=== PATIENT | female | born 1945 | race Caucasian/White ===

== ENCOUNTER 2024-08-15 05:40 | Day surgery (SDC) | payer OTHER, SELFPAY ==
--- NOTE | 2024-08-10 08:00 | EKG_ITS ---
[facility] Test Date: 2024-08-10 Pat Name: RHODA OSBORN Department: Room: - Gender: Female [employer]: [employer] : 1945 Requested By: Jeff Almeida Order Number: [id number] Reading MD: Jeff Almeida Measurements Intervals [place] Rate: 60 P: 31 NM: 186 QRS: 40 QRSD: 91 T: 42 QT: 411 QTc: 412 Interpretive Statements SINUS RHYTHM LOW QRS VOLTAGE IN PRECORDIAL LEADS No previous ECG available for comparison /[id number]/[id number]
[2024-08-10 08:38] VITALS: BMI 23.3
[2024-08-10 09:41] LABS: Basophils # (Auto) 0.1 Thou/mm3 (0.0-0.2); Basophils % (Auto) 1 % (0-2.5); Eosinophils # (Auto) 0.3 Thou/mm3 (0.0-0.5); Eosinophils % (Auto) 3 % (0-10); Hematocrit 42.5 % (36.0-46.0); Hemoglobin 14.6 g/dL (12.0-16.0); Immature Granulocytes % (Auto) 0 % (0-0); Immature Granulocytes Auto 0.04 Thou/mm3 (0.00-0.00); Lymphocytes % (Auto) 33 % (10-50); Mean Corpuscular HGB Conc 34.4 g/dl (31.0-37.0); Mean Corpuscular Hemoglobin 33.2 pg (25.0-35.0); Mean Corpuscular Volume 97 fL (80-100); Monocytes # (Auto) 0.7 Thou/mm3 (0.0-0.8); Monocytes % (Auto) 8 % (0-12); Neutrophils % (Auto) 55 % (37-80); Nucleated Red Blood Cell % 0 /100 WBC (0); Platelet Count 237 Thou/mm3 (140-440); RDW Standard Deviation 44.9 fL (36.4-46.3); White Blood Count 9.1 Thou/mm3 (3.6-11.0)
[2024-08-10 09:51] LABS: Partial Thromboplastin Time 25.9 Seconds (22.0-36.0); Prothrombin Time 11.2 Seconds (9.0-12.2)
[2024-08-10 09:55] LABS: Alanine Aminotransferase 16 U/L (10-49); Albumin, Serum 4.4 gm/dL (3.4-4.8); Albumin/Globulin Ratio 1.8 (1.2-2.2); Alkaline Phosphatase 85 U/L (46-116); Anion Gap 9 (7-16); Aspartate Amino Transferase 21 U/L (0-34); BUN/Creatinine Ratio 15 Ratio (12-20); Bilirubin,Total 0.8 mg/dL (0.3-1.2); Blood Urea Nitrogen 12 mg/dL (9-23); Calcium 9.3 mg/dL (8.3-10.6); Calcium (Corrected) 9.3 mg/dL (8.5-10.1); Carbon Dioxide 26.2 mMol/L (20.0-31.0); Chloride 106 mMol/L (98-107); Creatinine (Component) 0.8 mg/dL (0.6-1.3); Estimated Creatinine Clearance 43.7 mL/min (>60); Globulin 2.4 gm/dL (2.3-3.5); Glucose 99 mg/dL (74-106); Osmolality,Calculated 280 (275-295); Sodium 141 mMol/L (136-145); Total Protein 6.8 gm/dL (5.7-8.2); eGFR > 60 See Note
--- NOTE | 2024-08-10 16:23 | ESHP_ITS ---
RE: RHODA OSBORN : 1945 DATE OF ADMISSION: 08/15/2024 CHIEF COMPLAINT: Triggering, right thumb. HISTORY OF PRESENT ILLNESS: The patient has developed triggering of her right thumb. She is scheduled for a right trigger thumb release. The risks of the procedure were explained to the patient. Signed informed consent was obtained in the office. PAST MEDICAL HISTORY: Reviewed. SOCIAL HISTORY: She is with two children. OPERATIONS: * Tonsillectomy. * Left trigger thumb release. ALLERGIES: NONE. MEDICATIONS: None. MAJOR MEDICAL ILLNESSES: Denies heart disease, heart attack, heart murmur, hypertension, gout, kidney disease, liver disease, hepatitis, polio, tuberculosis, arthritis, yellow jaundice, cholelithiasis, diabetes, valley fever, depression, ulcer or cancer. FAMILY HISTORY: Negative for TB, diabetes, asthma, glaucoma, heart disease, heart attack, liver disease, hypertension, emphysema, stroke, epilepsy, bleeding disorder, ulcer or cancer. REVIEW OF SYSTEMS: The patient has IBS. Denies chest pain, shortness of breath, orthopnea, paroxysmal nocturnal dyspnea, dyspnea on exertion, productive cough or hemoptysis. Denies nausea, vomiting, constipation, hematemesis, hematochezia, melena or black tarry bowel movements. Denies dysuria or prior hematuria. Denies stroke, seizures or syncopal episodes. No change in moles or rashes. No difficulty with balance. No numbness or tingling in hands. Mammogram 2022. Does not smoke. She has one glass of wine. PHYSICAL EXAMINATION: General: Shows a well-developed, well-nourished woman in no acute distress. HEENT: Normocephalic without masses. EOM is full. Throat is clear. Neck: Supple. Chest: Clear to P and A. Heart: Regular rate and rhythm. No murmurs. No gallops. Abdomen: Soft and nontender. No masses. No organomegaly. Breasts: Deferred. Rectal: Deferred. Genitalia: Deferred. Extremities: Examination of the extremities shows that she has triggering of the right thumb and pain over the metacarpophalangeal joint of the right thumb. No numbness or tingling in the fingers. ASSESSMENT: Right trigger thumb. PLAN: Release of right trigger thumb. DT: 15:31:52 TT: 16:21:00 Ref: [id number] - TID: [id number]
[2024-08-15 06:17] VITALS: BP 130/73; PULSE 66; RESP 16; TEMP 36.4; O2SAT 97; BMI 23.3
[2024-08-15] MEDS: RINGERS LACTATED 500 ML 500 ML 20 ML IV (06:23)
--- NOTE | 2024-08-15 07:32 | CHAP ---
Patient expressed gratitude for prayer before their procedure.
[2024-08-15 08:48] VITALS: BP 141/77; PULSE 71; RESP 20; TEMP 36.5; O2SAT 98
--- NOTE | 2024-08-15 08:48 | SUR.PHASEII ---
0848: Pt. AAOx4, vitals stable, breathing unlabored, no complaint of pain or nausea, dressing to right hand CDI, no active bleed noted, pt. able to wiggle bilateral fingers, cap refill to bilateral hands less than 3 seconds, report received from MD Caballero and Abad BORJAS .
[2024-08-15 08:53] VITALS: BP 139/77; PULSE 68; RESP 19; TEMP 36.2; O2SAT 98
[2024-08-15 08:58] VITALS: BP 134/86; PULSE 67; RESP 20; TEMP 36.2; O2SAT 98
[2024-08-15 09:03] VITALS: BP 140/71; PULSE 65; RESP 18; TEMP 36.2; O2SAT 97
[2024-08-15 09:18] VITALS: BP 126/73; PULSE 65; RESP 18; TEMP 36.3; O2SAT 95
--- NOTE | 2024-08-15 09:30 | SUR.PHASEII ---
Pt. AAOx4, vitals stable, breathing unlabored, no complaint of pain or nausea, dressing to right hand CDI, no active bleed noted, pt. able to wiggle bilateral fingers, cap refill to bilateral hands less than 3 seconds, gave discharge instructions to the pt. and her ride, both verbalized understanding and had no further questions. Pt. ambulated to wheelchair with steady gait and no assist, pt. left with all personal belongings.
--- NOTE | 2024-08-15 21:51 | PD.SUROPNT ---
Date of Procedure 08/15/24 Pre Op Diagnosis Right trigger thumb Post Op Diagnosis Right trigger thumb Procedure Release of right trigger thumb triggering of right thumb, cortisone injection done and recurrence of right trigger thumb Procedure Description Patient taken the operating room and the right thumb was identified as the correct digit. She received IV sedation and preoperative Ancef. Digital nerve block carried out with lidocaine. The right arm was elevated exsanguinated with an Esmarch bandage. Tourniquet was inflated. Transverse incision was made over the MCP joint. Gentle blunt dissection was carried out and the radial digital nerve was identified. The A1 gold was identified and incised the patient was then instructed to flex and extend her right thumb. She did it easily. There was no palpable triggering no visual triggering. Wound irrigated with Betadine and saline solution tourniquet was deflated minimal bleeding encountered. Wound closed with interrupted 5-0 nylon suture using a vertical mattress technique. Bulky dressing was applied using Dakin soaked Kerlix sponges dry Kerlix sponges 4 inch cut bias. Sponge needle counts correct taken to the recovery room uneventfully. Anesthesia MAC and regional Drains None Implants None Pathology / specimen None IVF Infused 250 Urine Output 0 Estimated Blood Loss 5 Condition Stable Disposition PACU Surgeon Jeff Hunter MD Surgical Staff Operation Date: 08/15/24 07:30 Case Staff Anesthesiologist: Kyle Caballero
== END 2024-08-15 09:30 | disposition home or self-care (01) ==
PROVIDERS: PCP Family Medicine; Referring Provider Orthopaedic Surgery; Visit Provider Orthopaedic Surgery
PROC: (CPT 26055; principal; 2024-08-15 07:30)
DX: M65.311 Trigger thumb, right thumb (principal); Z01.810 Encounter for preprocedural cardiovascular examination
CPT/HCPCS: 26055; 36415; 80053; 85025; 85610; 85730; 93005; A4649; J0690; J2250; J2704; J2795; J3010; J3490; J7120; A9270

== ENCOUNTER → 2024-08-18 | Outpatient (CLI) | payer OTHER, SELFPAY ==
--- NOTE | 2024-08-18 07:00 | XR_ITS ---
MRI shoulder, left, without contrast. Date and time: August 18, 2024 0655 hrs. Indications: Left shoulder pain radiating to the left arm weakness in the left arm beginning 1.5 years ago after lifting injury, patient heard a pop in the shoulder followed by shoulder pain Technique: Multiple axial, sagittal and coronal sections of the shoulder have been obtained. Siemens high-resolution 1.5 Molly MRI scanner is utilized. Axial fat-suppressed sections, TR 2350, TE 18 T2-weighted coronal fat-saturated images, TR 3500, TE 7100 T1-weighted coronal images, TR 500, TE 15 T2-weighted sagittal fat-saturated images, TR 3500, TE 57 T1-weighted sagittal sections, TR 504, TE 13. Findings: 20 mm full-thickness rotator cuff tear Subscapularis insertion is intact. Subscapularis bursa is small. Long head of the biceps is in the bicipital groove. No definite tear of the biceps superior labral anchor is seen. Retraction of the musculotendinous junction of the rotator cuff is evident. Tendinosis pattern is moderate. Distance between the acromium and humeral head is 3 mm Atrophy of the supraspinatus muscle is severe. Atrophy of the infraspinatus muscle is moderate. Sagittal sections demonstrate a horizontal acromion. Acromioclavicular joint demonstrates moderate osteoarthritis. Osacromiale is not identified. Anterior superior posterior labral tears. Bony glenoid fossa on the sagittal sections does not demonstrate osseous defect. Occult fracture or area of avascular necrosis is not seen. Acromioclavicular joint separation is not visible. Defect in the posterolateral margin of the humeral head is not seen Impression: 20 mm full-thickness rotator cuff tear Anterior superior posterior labral tears
== END | disposition home or self-care (01) ==
LOC: SMRI 06:38
PROVIDERS: PCP Orthopaedic Surgery; Referring Provider Orthopaedic Surgery; Visit Provider Orthopaedic Surgery
DX: M75.122 Complete rotator cuff tear or rupture of left shoulder, not specified as traumatic (principal); S43.432A Superior glenoid labrum lesion of left shoulder, initial encounter; X58.XXXA Exposure to other specified factors, initial encounter
CPT/HCPCS: 73221

== ENCOUNTER → 2024-09-21 | Outpatient (CLI) | payer OTHER, SELFPAY ==
[2024-09-21 12:02] LABS: Alanine Aminotransferase 11 U/L (10-49); Albumin, Serum 4.3 gm/dL (3.4-4.8); Alkaline Phosphatase 78 U/L (46-116); Anion Gap 10 (7-16); Aspartate Amino Transferase 19 U/L (0-34); BUN/Creatinine Ratio 16 Ratio (12-20); Bilirubin,Total 0.8 mg/dL (0.3-1.2); Blood Urea Nitrogen 11 mg/dL (9-23); Calcium 9.3 mg/dL (8.3-10.6); Calcium (Corrected) 9.3 mg/dL (8.5-10.1); Carbon Dioxide 27.6 mMol/L (20.0-31.0); Cardiac Risk Estimate 3.9 RATIO (3.7-5.6); Chloride 104 mMol/L (98-107); Cholesterol 193 mg/dL (132-200); Creatinine (Component) 0.7 mg/dL (0.6-1.3); Globulin 2.1 gm/dL (2.3-3.5); Glucose 98 mg/dL (74-106); HDL Cholesterol 50 mg/dL (40-60); LDL Cholesterol,Calculated 115 mg/dL (0-130); Osmolality,Calculated 282 (275-295); Potassium 4.6 mMol/L (3.4-5.1); Sodium 142 mMol/L (136-145); Total Protein 6.4 gm/dL (5.7-8.2); Triglycerides 142 mg/dL (30-150); eGFR > 60 See Note
== END | disposition home or self-care (01) ==
LOC: COPL 10:03
PROVIDERS: PCP Family Medicine; Referring Provider Physician Assistant; Visit Provider Physician Assistant
DX: E78.5 Hyperlipidemia, unspecified (principal)
CPT/HCPCS: 36415; 80053; 80061

== ENCOUNTER → 2025-05-18 | Outpatient (CLI) | payer OTHER, SELFPAY ==
[2025-05-18 11:15] LABS: Collection Type, Urine Clean Catch; Squamous Epithelial Cell,Urine 0 /hpf (0-5)
[2025-05-18 12:05] LABS: Bilirubin,Urine Negative (Negative); Blood,Urine Trace (Negative); Clarity,Urine Clear (Clear/Hazy); Color,Urine Yellow (Lt Yel-Yel); Culture Indicated,Urine Not Indicated; Glucose, Urine Negative (Negative); Ketones,Urine Negative (Negative); Leukocyte Esterase,Urine Negative (Negative); Nitrite,Urine Negative (Negative); PH,Urine 6.0 (5.0-7.0); Protein,Urine Negative (Neg - Trace); RBC,Urine 12 /hpf (0-3); Specific Gravity,Urine 1.024 (1.001-1.035); Urobilinogen,Urine Negative mg/dL (0.0-1.0); WBC,Urine < 1 /hpf (0-5)
[2025-05-18 12:07] LABS: Basophils # (Auto) 0.1 Thou/mm3 (0.0-0.2); Basophils % (Auto) 1 % (0-2.5); Eosinophils # (Auto) 0.1 Thou/mm3 (0.0-0.5); Eosinophils % (Auto) 1 % (0-10); Hematocrit 43.2 % (36.0-46.0); Hemoglobin 14.7 g/dL (12.0-16.0); Immature Granulocytes Auto 0.05 Thou/mm3 (0.00-0.00); Lymphocytes # (Auto) 3.2 Thou/mm3 (1.0-4.8); Lymphocytes % (Auto) 36 % (10-50); Mean Corpuscular HGB Conc 34.0 g/dl (31.0-37.0); Mean Corpuscular Hemoglobin 34.0 pg (25.0-35.0); Mean Corpuscular Volume 100 fL (80-100); Monocytes # (Auto) 0.6 Thou/mm3 (0.0-0.8); Monocytes % (Auto) 7 % (0-12); Neutrophils # (Auto) 4.9 Thou/mm3 (1.8-7.7); Neutrophils % (Auto) 55 % (37-80); Nucleated Red Blood Cell # 0.00 Thou/mm3 (0.00-0.00); Nucleated Red Blood Cell % 0 /100 WBC (0); Platelet Count 199 Thou/mm3 (140-440); RDW Standard Deviation 47.3 fL (36.4-46.3); Red Blood Count 4.32 Miln/mm3 (4.00-5.20); White Blood Count 8.9 Thou/mm3 (3.6-11.0)
[2025-05-18 12:30] LABS: Alanine Aminotransferase 21 U/L (10-49); Albumin, Serum 4.3 gm/dL (3.4-4.8); Albumin/Globulin Ratio 2.2 (1.2-2.2); Alkaline Phosphatase 80 U/L (46-116); Anion Gap 13 (7-16); Aspartate Amino Transferase 32 U/L (0-34); BUN/Creatinine Ratio 19 Ratio (12-20); Bilirubin,Total 0.9 mg/dL (0.3-1.2); Blood Urea Nitrogen 13 mg/dL (9-23); Calcium 9.9 mg/dL (8.3-10.6); Calcium (Corrected) 9.9 mg/dL (8.5-10.1); Carbon Dioxide 25.9 mMol/L (20.0-31.0); Cardiac Risk Estimate 3.2 RATIO (3.7-5.6); Chloride 107 mMol/L (98-107); Cholesterol 201 mg/dL (132-200); Creatinine (Component) 0.7 mg/dL (0.6-1.3); Globulin 2.0 gm/dL (2.3-3.5); Glucose 94 mg/dL (74-106); HDL Cholesterol 62 mg/dL (40-60); LDL Cholesterol,Calculated 115 mg/dL (0-130); Osmolality,Calculated 290 (275-295); Potassium 5.2 mMol/L (3.4-5.1); Sodium 146 mMol/L (136-145); Thyroid Stimulating Hormone 3.05 uIU/mL (0.55-4.78); Total Protein 6.3 gm/dL (5.7-8.2); Triglycerides 120 mg/dL (30-150); eGFR > 60 See Note
[2025-05-18 12:38] LABS: Vitamin B12 718 pg/mL (211-911); Vitamin D 25 Hydroxy Total 59.3 ng/mL (7.3-40.2)
== END | disposition home or self-care (01) ==
LOC: COPL 10:12
PROVIDERS: PCP Family Medicine; Referring Provider Physician Assistant; Visit Provider Physician Assistant
DX: Z00.00 Encounter for general adult medical examination without abnormal findings (principal); E78.5 Hyperlipidemia, unspecified; E55.9 Vitamin D deficiency, unspecified
CPT/HCPCS: 36415; 80053; 80061; 81001; 82306; 82607; 84443; 85025

== ENCOUNTER → 2025-06-01 | Outpatient (CLI) | payer OTHER, SELFPAY ==
[2025-06-05 09:20] LABS: Fecal Globin Result NOT DETECTED (NOT DETECTED)
== END | disposition home or self-care (01) ==
LOC: SLDO 12:40
PROVIDERS: PCP Family Medicine; Referring Provider Physician Assistant; Visit Provider Physician Assistant
DX: Z12.11 Encounter for screening for malignant neoplasm of colon (principal)
CPT/HCPCS: 82274; G0328

== ENCOUNTER → 2025-06-20 | Outpatient (CLI) | payer OTHER, SELFPAY ==
[2025-06-20 13:31] LABS: Alanine Aminotransferase 20 U/L (10-49); Albumin, Serum 4.3 gm/dL (3.4-4.8); Albumin/Globulin Ratio 2.0 (1.2-2.2); Alkaline Phosphatase 75 U/L (46-116); Anion Gap 10 (7-16); Aspartate Amino Transferase 28 U/L (0-34); BUN/Creatinine Ratio 21 Ratio (12-20); Bilirubin,Total 0.6 mg/dL (0.3-1.2); Blood Urea Nitrogen 15 mg/dL (9-23); Calcium 9.6 mg/dL (8.3-10.6); Calcium (Corrected) 9.6 mg/dL (8.5-10.1); Carbon Dioxide 27.2 mMol/L (20.0-31.0); Chloride 106 mMol/L (98-107); Creatinine (Component) 0.7 mg/dL (0.6-1.3); Globulin 2.2 gm/dL (2.3-3.5); Glucose 92 mg/dL (74-106); Osmolality,Calculated 285 (275-295); Potassium 4.3 mMol/L (3.4-5.1); Sodium 143 mMol/L (136-145); Total Protein 6.5 gm/dL (5.7-8.2); eGFR > 60 See Note
--- NOTE | 2025-06-20 14:00 | XR_ITS ---
Examination: Screening digital mammography, bilateral Computer aided detection 3-D breast Tomosynthesis, bilateral Date and time of exam: June 20, 2025, 1300 hours, compared to mammograms dating to September 15, 2017h Indication: Screening Technique: Nonmagnified MLO, CC views of the breasts to been obtained, reconstructed from 3-D Tomosynthesis images. R2 computer aided detection program utilized for evaluation of suspicious masses and/or abnormal calcifications. 3-D Tomosynthesis images obtained. Findings: Scattered areas of fibroglandular density. 25 mm more prominent focal asymmetry in the upper outer right breast mid to posterior depth Impression: BI-RADS Category 0: Incomplete: Need additional imaging evaluation Recommend follow-up spot tomographic views of 25 mm more prominent focal asymmetry upper outer right breast as well as bilateral breast sonography to complete the work-up
== END | disposition home or self-care (01) ==
LOC: CDIM 12:25
PROVIDERS: PCP Physician Assistant; Referring Provider Family Medicine; Visit Provider Family Medicine
DX: Z12.31 Encounter for screening mammogram for malignant neoplasm of breast (principal); R92.8 Other abnormal and inconclusive findings on diagnostic imaging of breast; N64.89 Other specified disorders of breast
CPT/HCPCS: 36415; 77063; 77067; 80053

== ENCOUNTER → 2025-07-31 | Outpatient (CLI) | payer OTHER, SELFPAY ==
--- NOTE | 2025-07-31 14:00 | XR_ITS ---
Examination: CT abdomen and pelvis without contrast. Coronal 3-D reconstructions. Sagittal 2-D reconstructions. Date and time of exam: July 31, 2025, 1521 hours INDICATIONS: Hematuria noticed beginning 1 week ago CTDI: vol (mGy): 6.36 DLP: (mGycm): 307 Technique: Axial images of the abdomen have been obtained, 3 mm slice thickness Intravenous contrast material has not been administered. Low dose protocols were performed. One or more of the following dose reduction techniques were used; automated exposure control, adjustment of the mA and/or KV according to patient size, use of iterative reconstruction technique. Findings: Large retrocardiac gastric hernia No visualized liver or splenic lesion, hepatomegaly 19 cm No gallstones No pancreatic or adrenal mass No renal or ureteral calculi Aortic calcification no aneurysmal dilatation No pericecal inflammatory change No bowel obstruction Colonic diverticulosis no diverticulitis Atrophic uterus No bladder mass or bladder calculi Significant osteopenia with moderate to advanced disc narrowing L4-L5, L5-S1 IMPRESSION: Hepatomegaly, 19 cm No renal or ureteral calculi, no hydronephrosis No CT findings of appendicitis bowel obstruction or diverticulitis
== END | disposition home or self-care (01) ==
LOC: SCAT 13:29
PROVIDERS: PCP Physician Assistant; Referring Provider Physician Assistant; Visit Provider Physician Assistant
DX: R16.0 Hepatomegaly, not elsewhere classified (principal)
CPT/HCPCS: 74176

== ENCOUNTER → 2025-08-24 | Outpatient (CLI) | payer OTHER, SELFPAY ==
--- NOTE | 2025-08-24 13:00 | XR_ITS ---
Examination: Breast ultrasound complete, bilateral Date and time of exam: August 24, 2025, 1339 hours INDICATIONS: Mammogram June 20, 2025 more prominent focal asymmetry upper outer right breast mid to posterior depth Technique: Real-time grayscale ultrasonographic imaging bilateral breasts, including all 4 quadrants as well as nipple retroareolar and axillary regions. Findings: Sonographic images right and left breast demonstrate no cystic or solid masses IMPRESSION: BI-RADS Category 1: Negative studies
--- NOTE | 2025-08-24 14:15 | XR_ITS ---
Examination: Diagnostic digital mammography, unilateral, right Computer aided detection 3-D breast Tomosynthesis, unilateral Date and time of exam: 08/24/2025, 1:18 p.m. Comparisons: September 2019 through June 2025 Indications: Further evaluation of upper outer quadrant focal asymmetry seen on prior screening exam. Technique: Nonmagnified MLO, CC views of the right breast have been obtained, reconstructed from 3-D Tomosynthesis images. R2 computer aided detection program utilized for evaluation of suspicious masses and/or abnormal calcifications. 3-D Tomosynthesis images obtained. Technologist: Findings: There are scattered areas of fibroglandular density. No evidence of abnormal masses or suspicious calcifications. The previously described abnormality does not persist on spot compression views and represents superimposition of normal fibroglandular tissue. Impression: BI-RADS category 1: Negative findings (within normal) Recommend 1 year follow-up mammogram
== END | disposition home or self-care (01) ==
LOC: CDIM 12:59
PROVIDERS: PCP Family Medicine; Referring Provider Physician Assistant; Visit Provider Physician Assistant
DX: R92.311 Mammographic fatty tissue density, right breast (principal)
CPT/HCPCS: 76641; 77061; 77065; G0279